=== PATIENT | male | born 1960 | race Caucasian/White ===

== ENCOUNTER 2021-09-21 14:26 | Emergency (ER) | payer OTHER ==
[~2021-09-21] VITALS: Ht 165.1 cm; Wt 84.9 kg
[2021-09-21 14:45] VITALS: BP 137/92
--- NOTE | 2021-09-21 15:00 | NUR ---
BIB SELF C/O 05/15 RIGHT ELBOW PAIN RADIATING TO RIGHT SHOULDER & R NECK X 5 DAYS. DENIES TRAUMA/INJURY. PMH: DENIES
[2021-09-21] MEDS ORDERED: KETOROLAC 30 MG/ML VIAL IM ONE (15:20)
--- NOTE | 2021-09-21 16:02 | NUR ---
BLOOD SUGAR 87 AT THIS TIME
[2021-09-21] MEDS ORDERED: CEPH-588 PO (16:08)
[2021-09-21] MEDS ORDERED: NAPR-54 PO (16:08)
[2021-09-21] MEDS ORDERED: DIPH25TA53 PO (16:13)
[2021-09-21 16:23] VITALS: BP 144/93
--- NOTE | 2021-09-21 16:23 | NUR ---
Patient discharged with v/s stable. Written and verbal after care instructions given and explained. Patient alert, oriented and verbalized understanding of instructions. Ambulatory with steady gait. All questions addressed prior to discharge. ID band removed. Patient advised to follow up with PMD. Rx of KEFLEX, BENADRYL & NAPROSYN given. Patient educated on indication of medication including possible reaction and side effects. Opportunity to ask questions provided and answered.
== END 2021-09-21 16:23 | disposition home or self-care (01) ==
LOC: MED 14:26
DX: L03.113 Cellulitis of right upper limb (principal); E11.9 Type 2 diabetes mellitus without complications; Z79.899 Other long term (current) drug therapy
CPT/HCPCS: 73080; 96372; 99283; J1885

== ENCOUNTER 2022-01-30 16:02 | Emergency (ER) | payer OTHER ==
[~2022-01-30] VITALS: Ht 165.1 cm; Wt 77.1 kg
[~2022-01-30 16:02] MED LIST: CEPH-588 PO; DIPH25TA53 PO; NAPR-54 PO
[2022-01-30 16:13] VITALS: BP 123/93
--- NOTE | 2022-01-30 16:13 | NUR ---
61 Y/O MALE C/O RT FOOT PAIN X2 DAYS. PT STATES "FEELS LIKE AIR IN MY FOOT" 10/10 NUMBNESS PAIN. MEDHX: HTN, DM, HLD NKA
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
[2022-01-30] MEDS ORDERED: KETOROLAC 60 MG/2 ML VIAL IM ONE (17:30)
--- NOTE | 2022-01-30 18:15 | NUR ---
Patient discharged with v/s stable. Written and verbal after care instructions given and explained. Patient verbalized understanding. Ambulatory with steady gait. All questions addressed prior to discharge. Advised to follow up with PMD.
--- NOTE | 2022-01-30 18:20 | NUR ---
The patient's care was reviewed and supervised by Urmila Davis RN.
== END 2022-01-30 18:10 | disposition home or self-care (01) ==
LOC: MED 16:02
DX: M79.671 Pain in right foot (principal); E11.9 Type 2 diabetes mellitus without complications; Z79.899 Other long term (current) drug therapy
CPT/HCPCS: 29515; 73630; 96372; 99283; J1885

== ENCOUNTER 2022-07-31 20:05 | Emergency (ER) | payer OTHER ==
[~2022-07-31] VITALS: Ht 165.1 cm; Wt 83.0 kg
[2022-07-31 20:32] VITALS: BP 100/67
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
[2022-07-31] MEDS ORDERED: ACET-10509 PO (21:19)
[2022-07-31] MEDS ORDERED: METH-1681 PO (21:19)
[2022-07-31 21:36] VITALS: BP 140/69
--- NOTE | 2022-07-31 21:37 | NUR ---
Patient discharged with v/s stable. Written and verbal after care instructions given and explained. Patient alert, oriented and verbalized understanding of instructions. Ambulatory with steady gait. All questions addressed prior to discharge. ID band removed. Patient advised to follow up with PMD. Rx SENT TO [facility] given. Patient educated on indication of medication including possible reaction and side effects. Opportunity to ask questions provided and answered.
== END 2022-07-31 21:37 | disposition home or self-care (01) ==
LOC: MED 20:05
DX: S16.1XXA Strain of muscle, fascia and tendon at neck level, initial encounter (principal); S39.012A Strain of muscle, fascia and tendon of lower back, initial encounter; S00.83XA Contusion of other part of head, initial encounter; E11.9 Type 2 diabetes mellitus without complications; Z79.899 Other long term (current) drug therapy; V89.2XXA Person injured in unspecified motor-vehicle accident, traffic, initial encounter; Y93.89 Activity, other specified; Y92.89 Other specified places as the place of occurrence of the external cause; Y99.8 Other external cause status
CPT/HCPCS: 99283

== ENCOUNTER 2022-08-17 18:06 | Emergency (ER) | payer OTHER ==
[~2022-08-17] VITALS: Ht 165.1 cm; Wt 83.9 kg
[~2022-08-17 18:06] MED LIST changes: +ACET-10509 PO; +METH-1681 PO
[2022-08-17 18:29] VITALS: BP 151/70
--- NOTE | 2022-08-17 19:48 | NUR ---
ER BED 1
[2022-08-17] MEDS ORDERED: ACETAMINOPHEN 325 MG TAB PO ONE (20:00)
--- NOTE | 2022-08-17 21:38 | NUR ---
PATIENT ELOPED FROM FACILITY. DISCHARGE INSTRUCTIONS NOT GIVEN TO PATIENT. DR. LONG NOTIFIED.
--- NOTE | 2022-08-17 21:38 | NUR ---
Chart checked and completed.
== END 2022-08-17 21:38 | disposition left against medical advice (07) ==
LOC: MED 18:06
DX: M54.2 Cervicalgia (principal); E11.9 Type 2 diabetes mellitus without complications; Z79.4 Long term (current) use of insulin; Z79.899 Other long term (current) drug therapy; V49.88XA Car occupant (driver) (passenger) injured in other specified transport accidents, initial encounter; Y93.89 Activity, other specified; Y92.89 Other specified places as the place of occurrence of the external cause; Y99.8 Other external cause status
CPT/HCPCS: 72040; 72100; 99284

== ENCOUNTER 2023-01-18 22:17 | Emergency (ER) | payer OTHER ==
[~2023-01-18] VITALS: Ht 165.1 cm; Wt 86.2 kg
[2023-01-18 22:48] VITALS: BP 115/70
[2023-01-18 22:53] VITALS: BP 115/70
--- NOTE | 2023-01-18 22:56 | NUR ---
PT TO 7
--- NOTE | 2023-01-18 22:56 | NUR ---
Carli mullins in [facility] - 01/18/23 at 2256 by SATYA PT TAKEN TO BED 7
--- NOTE | 2023-01-18 23:08 | NUR ---
X-Ray at bedside.
--- NOTE | 2023-01-18 23:16 | NUR ---
FELICE DICKINSON AT BEDSIDE
--- NOTE | 2023-01-18 23:18 | NUR ---
62 Y/O M presents with sore throat, r side intermittentheadache, constant cough, and bodyaches x 1week. pt states he feels SOB with discomfort and pressure and generalized weakness. pt states hes been constipated and took tylenol with little relief. pt is A&Ox4, skin intact. PMH- diabetes meds-cholesterol meds NKA
[2023-01-19] MEDS ORDERED: ACET-10509 PO (00:07)
[2023-01-19] MEDS ORDERED: ALBU0.0912 INH (00:07)
[2023-01-19] MEDS ORDERED: IBUP-2213 PO (00:07)
[2023-01-19] MEDS ORDERED: ROBAC PO (00:07)
--- NOTE | 2023-01-19 00:18 | NUR ---
Patient discharged with v/s stable. Written and verbal after care instructions given and explained. Patient alert, oriented and verbalized understanding of instructions. Ambulatory with steady gait. All questions addressed prior to discharge. ID band removed. Patient advised to follow up with PMD. Rx of Albuterol Sulfate, Ibuprofen. and Codeine phosphate given. Opportunity to ask questions provided and answered.
== END 2023-01-19 00:18 | disposition home or self-care (01) ==
LOC: MED 22:17
DX: R05.9 Cough, unspecified (principal); Z20.822 Contact with and (suspected) exposure to COVID-19; E11.9 Type 2 diabetes mellitus without complications; Z79.4 Long term (current) use of insulin; Z79.899 Other long term (current) drug therapy
CPT/HCPCS: 71045; 87426; 99284; Q0092

== ENCOUNTER 2024-04-04 05:41 | Emergency (ER) | payer OTHER ==
[~2024-04-04] VITALS: Ht 165.1 cm; Wt 90.7 kg
[~2024-04-04 05:41] MED LIST changes: +ALBU0.0912 INH; +IBUP-2213 PO; +NAPR-337 PO; -NAPR-54 PO; +ROBAC PO
[2024-04-04 05:50] VITALS: BP 127/94; PULSE 72; RESP 17; TEMP 98; O2SAT 99
[2024-04-04] MEDS ORDERED: BENZ-300 PO (06:36)
[2024-04-04] MEDS ORDERED: AMOX500C25 PO (06:36)
[2024-04-04] MEDS: KETOROLAC 30 MG/ML VIAL IM ONE (06:57)
[2024-04-04] MEDS: DEXAMETHASONE 10 MG/ML VIAL PO ONE (06:58)
[2024-04-04 07:11] VITALS: BP 127/94; PULSE 72; RESP 17; TEMP 98; O2SAT 99
== END 2024-04-04 07:11 | disposition home or self-care (01) ==
LOC: MED 05:41
DX: J02.9 Acute pharyngitis, unspecified (principal); E11.9 Type 2 diabetes mellitus without complications; E03.0 Congenital hypothyroidism with diffuse goiter; Z79.1 Long term (current) use of non-steroidal anti-inflammatories (NSAID); Z79.2 Long term (current) use of antibiotics; Z79.899 Other long term (current) drug therapy
CPT/HCPCS: 87081; 96372; 99283; J1100; J1885

== ENCOUNTER 2024-07-03 21:50 | Emergency (ER) | payer OTHER ==
[~2024-07-03] VITALS: Ht 165.1 cm; Wt 90.7 kg
[~2024-07-03 21:50] MED LIST changes: -ACET-10509 PO; +ACET500T99 PO; +AMOX500C25 PO; +BENZ-300 PO
[2024-07-03 22:07] VITALS: BP 132/72; PULSE 82; RESP 18; TEMP 97.2; O2SAT 95
[2024-07-04] MEDS: KETOROLAC 60 MG/2 ML VIAL IM ONE (03:05)
[2024-07-04] MEDS ORDERED: NAPR-1717 PO (03:19)
[2024-07-04] MEDS ORDERED: TRAM50TA3 PO (03:19)
[2024-07-04 03:31] VITALS: BP 132/72; PULSE 82; RESP 18; TEMP 97.2; O2SAT 95
== END 2024-07-04 03:26 | disposition home or self-care (01) ==
LOC: MED 21:50
DX: S33.9XXA Sprain of unspecified parts of lumbar spine and pelvis, initial encounter (principal); S13.4XXA Sprain of ligaments of cervical spine, initial encounter; E11.9 Type 2 diabetes mellitus without complications; Z98.890 Other specified postprocedural states; Z79.899 Other long term (current) drug therapy; V89.2XXA Person injured in unspecified motor-vehicle accident, traffic, initial encounter; Y93.89 Activity, other specified; Y92.89 Other specified places as the place of occurrence of the external cause; Y99.8 Other external cause status
CPT/HCPCS: 71045; 72050; 72100; 96372; 99284; J1885